=== PATIENT | female | born 1980 | race Caucasian/White ===

== ENCOUNTER 2021-12-13 12:37 | Emergency (ER) | payer OTHER ==
[~2021-12-13] VITALS: Ht 162.6 cm; Wt 60.9 kg
[2021-12-13] MEDS ORDERED: SERT-162 PO (12:55)
[2021-12-13] MEDS ORDERED: ARIP5TAB37 PO (12:55)
[2021-12-13] MEDS ORDERED: NALT50TA6 PO (12:55)
[2021-12-13] MEDS ORDERED: HYDR50CA7 PO (12:56)
[2021-12-13] MEDS ORDERED: CYCLOBENZAPRINE HCL 10 MG TABLET PO ONE (13:45)
[2021-12-13 15:12] VITALS: BP 120/68
[2021-12-13] MEDS ORDERED: CYCL-397 PO (15:34)
== END 2021-12-13 15:53 | disposition home or self-care (01) ==
LOC: EMS 12:37
DX: S22.32XA Fracture of one rib, left side, initial encounter for closed fracture (principal); M54.50 Low back pain, unspecified; F32.A Depression, unspecified; E11.9 Type 2 diabetes mellitus without complications; G43.909 Migraine, unspecified, not intractable, without status migrainosus; K58.9 Irritable bowel syndrome, unspecified; F17.210 Nicotine dependence, cigarettes, uncomplicated; F12.90 Cannabis use, unspecified, uncomplicated; Y04.8XXA Assault by other bodily force, initial encounter; Y93.89 Activity, other specified; Y92.89 Other specified places as the place of occurrence of the external cause; Y99.8 Other external cause status
CPT/HCPCS: 71101; 72100; 99284; Z7502; Z7610

== ENCOUNTER 2022-01-05 21:13 | Emergency (ER) | payer OTHER ==
[~2022-01-05] VITALS: Ht 154.9 cm; Wt 59.5 kg
[~2022-01-05 21:13] MED LIST: ARIP5TAB37 PO; CYCL-397 PO; HYDR50CA7 PO; NALT50TA6 PO; SERT-162 PO
[2022-01-05 21:50] LABS: COVID AG,FIA SOURCE NASAL SWAB
[2022-01-05] MEDS ORDERED: PENICILLIN V POTASSIUM 500 MG TABLET PO ONE (22:30)
[2022-01-05] MEDS ORDERED: ACETAMINOPHEN 500 MG TABLET PO ONE (22:30)
[2022-01-05] MEDS ORDERED: LIDOCAINE 2% VISCOUS 15 ML SOLUTION UDCUP PO ONE (22:30)
[2022-01-05 22:56] VITALS: BP 112/72
== END 2022-01-05 22:58 | disposition home or self-care (01) ==
LOC: EMS 21:14
DX: J02.0 Streptococcal pharyngitis (principal); E11.9 Type 2 diabetes mellitus without complications; F32.9 Major depressive disorder, single episode, unspecified; F12.10 Cannabis abuse, uncomplicated; F17.210 Nicotine dependence, cigarettes, uncomplicated; G43.909 Migraine, unspecified, not intractable, without status migrainosus; Z20.822 Contact with and (suspected) exposure to COVID-19
CPT/HCPCS: 87430; 99283; 99406

== ENCOUNTER 2022-01-19 03:07 | Emergency (ER) | payer OTHER ==
[~2022-01-19] VITALS: Ht 154.9 cm; Wt 59.5 kg
[~2022-01-19 03:07] MED LIST changes: -CYCL-397 PO; -HYDR50CA7 PO; -NALT50TA6 PO
[2022-01-19 03:18] VITALS: BP 124/85
== END 2022-01-19 05:55 | disposition left against medical advice (07) ==
LOC: EMS 03:21
DX: Z53.21 Procedure and treatment not carried out due to patient leaving prior to being seen by health care provider (principal)

== ENCOUNTER 2022-04-02 09:26 | Emergency (ER) | payer MEDICAID, OTHER ==
[~2022-04-02] VITALS: Ht 162.6 cm; Wt 56.8 kg
[2022-04-02 09:28] VITALS: BP 120/78
[2022-04-02] MEDS ORDERED: TRAM50TA4 PO (12:21)
== END 2022-04-02 12:56 | disposition home or self-care (01) ==
LOC: EMS 09:26
DX: S22.32XA Fracture of one rib, left side, initial encounter for closed fracture (principal); R07.81 Pleurodynia; E11.9 Type 2 diabetes mellitus without complications; F32.9 Major depressive disorder, single episode, unspecified; F12.90 Cannabis use, unspecified, uncomplicated; F17.210 Nicotine dependence, cigarettes, uncomplicated; G43.909 Migraine, unspecified, not intractable, without status migrainosus; X58.XXXA Exposure to other specified factors, initial encounter; Y93.89 Activity, other specified; Y92.89 Other specified places as the place of occurrence of the external cause; Y99.8 Other external cause status
CPT/HCPCS: 71045; 93005; 99283